=== PATIENT | female | born 1990 | race Caucasian/White ===

== ENCOUNTER 2017-02-08 20:35 | Outpatient (CLI) | payer OTHER ==
[2017-05-07] MEDS ORDERED: COLACE 100MG C100 MG PO (10:44)
== END 2017-02-08 22:03 | disposition home or self-care (01) ==
LOC: GENOP 20:35
DX: O36.8130 Decreased fetal movements, third trimester, not applicable or unspecified (principal); Z3A.28 28 weeks gestation of pregnancy
CPT/HCPCS: 59025; 81001

== ENCOUNTER → 2021-05-13 | Outpatient (CLI) | payer OTHER ==
[~2021-05-13] MED LIST: COLACE 100MG C100 MG PO
== END ==
LOC: KOH-I 11:30
DX: R22.1 Localized swelling, mass and lump, neck (principal); E04.2 Nontoxic multinodular goiter
CPT/HCPCS: 76536

== ENCOUNTER → 2021-06-30 | Outpatient (CLI) | payer OTHER | LOC: US 10:29 → CT 11:00 | DX: R59.0 Localized enlarged lymph nodes (principal); E04.1 Nontoxic single thyroid nodule | CPT/HCPCS: 70491; 76536; Q9967 ==